=== PATIENT | male | born 1960 | race Caucasian/White ===

== ENCOUNTER 2016-07-25 18:08 | Emergency (ER) | payer SELFPAY ==
[~2016-07-25] VITALS: Ht 182.9 cm; Wt 95.3 kg
--- NOTE | 2016-07-25 20:15 | ED GENERAL ADULT ---
History of Present Illness General Chief Complaint: Low Back Pain/Injury Stated Complaint: S/P FALL YESTERDAY LOW BACK PAIN Source: patient Exam Limitations: no limitations Allergies Coded Allergies: No Known Allergies (07/25/16) Triage Note: 55 Y/O MALE C/O R SIDED LOW BACK PAIN S/P FALL ON ICE LAST NIGHT. TOOK ADVIL WITH SOME RELIEF. QUICK STEADY GAIT NOTED. DENIES URINARY SYMPTOMS Triage Nurses Notes Reviewed? yes Onset: Abrupt Duration: constant Timing: STEADY 7/10 Pain on the right flank after a fall yesterday evening Injury Environment: street Severity: severe Severity Numbers: 7 Modifying Factors: Improves With: immobilization, medication, rest (hot compress improves the pain) , other. Worsens With: movement. Associated Symptoms: back pain HPI: Patient is a 55 year old gentleman that came to the ED due a recent onset pain on the right flank since he had a fall while walking and slipping over ice. patient reports a dull constant pain (7/10) on the right flank radiating to the anterior lower chest wall. He applied heat compresses that helped to some degrees and also took two percocets 6 hours apart to help with the pain. Patient could not sleep well last night due to the pain. He denies any lightheadedness before the fall, did not lose consciousness and denies head trauma. He has a hx of low back pain due to herniated disk but currently denies any back pain. Patient has been able to walk without difficulty and does not report any gait disturbance. does not report any bleeding or bruising. When asked about other concerns, the patient reproted an ulcer on the penis that was there since about 2 weeks ago, he had a previous history of an ulcer on the penis when using a razor and was seen by a supervisor order takers and was treated with TMP-SMX. He has been sexually active recently. (JENNIFER CURTIS,[facility]) Vital Signs & Intake/Output Vital Signs & Intake/Output Vital Signs Date Time Temp Pulse Resp B/P Pulse O2 O2 Flow FiO2 Ox Delivery Rate 07/25 2309 98.4 60 18 138/90 97 Room Air ED Intake and Output 07/26 0000 07/25 1200 Intake Total 0 Output Total Balance 0 Intake, Oral 0 Patient 95.254 kg Weight Reconcile Medications Cyclobenzaprine HCl 10 MG TABLET 1 TAB PO TID PRN muscle spasm Diclofenac Potassium 50 MG TABLET 1 TAB PO TIDPRN PRN back pain Oxycodone HCl/Acetaminophen (Percocet 2.5-325 MG Tablet) 2.5 MG-325 MG TABLET 10 TAB PO Q6 PRN PAIN SCALE 7-10 (SEVERE) (MENDEZ CURTIS,RADHA Pederson) Past History Travel History Traveled to [place] past 21 day No Medical History Any Pertinent Medical History? 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 No (GARCIA RODRIGUEZ MD) Review of Systems Review of Systems Constitutional: Denies: chills, diaphoresis, fever, malaise, weakness. EENTM: Denies: visual changes, hearing changes. Respiratory: Denies: cough, hemoptysis, orthopnea, short of breath, sputum production, stridor, wheezing. Cardiovascular: Denies: chest pain, edema, orthopena, palpitations, peripheral edema, syncope. GI: Denies: abdominal pain, changes in stool. Genitourinary: Denies: discharge, dysuria, frequency, hematuria, hesitation, nocturia, pain, urgency. Musculoskeletal: Reports: back pain, muscle pain. Denies: joint pain, joint swelling, neck pain. Skin: Reports: change in skin color, erythema. Neurological/Psychological: Reports: no symptoms. Hematologic/Endocrine: Denies: bruising, bleeding, polyuria, polydipsia. (GARCIA RODRIGUEZ MD) Physical Exam Physical Exam General Appearance: well developed/nourished, no apparent distress, alert, awake , comfortable Head: atraumatic, normal appearance Eyes: Bilateral: normal appearance, PERRL, EOMI. Ears, Nose, Throat: normal pharynx, normal ENT inspection, hearing grossly normal Neck: normal inspection, supple, full range of motion Respiratory: normal breath sounds, no respiratory distress, quiet respiration, lungs clear Cardiovascular: regular rate/rhythm Gastrointestinal: normal bowel sounds, soft, non-tender Back: normal range of motion, no vertebral tenderness, mild tenderness on the right lower chest and costovertebral angle with erythema of the skin Extremities: normal capillary refill, normal range of motion, no edema, calf tenderness, varicose veins on the distal right lower extremity., 1x1 cm penile ulcer on the ventral aspect, with no discharge, non tender. Neurologic/Psych: no motor/sensory deficits, awake, alert, oriented x 3, normal gait, normal mood/affect Skin: rash (JENNIFER CURTIS,GARCIA) Core Measures ACS in differential dx? No CVA/TIA Diagnosis: No Severe Sepsis Present: No Septic Shock Present: No (MENDEZ CURTIS,RADHA Pederson) Progress Differential Diagnoses I considered the following diagnoses in my evaluation of the patient: [possible fracture in the vertebrae or the ribs, soft tissue injury, syphilis chancre, genital chlamydia and gonoccocal infection] Pre-Hospital EKG: none Initial ED EKG: none (JENNIFER CURTIS,GARCIA) Differential Diagnoses I considered the following diagnoses in my evaluation of the patient: Plan of Care: Orders Procedure Date/time Status TRUNK AREA CULTURE 07/25 2134 Active CHLAMYDIA-GC DNA PROBE 07/25 2134 Active VIRAL CULTURE 07/25 2134 Active RAPID PLASMA REAGIN 07/25 2126 Complete Laboratory Tests 07/25/16 2214: Virus Culture Pending 07/25/169: RPR Titer/FTA NONREACTIVE Microbiology 07/25 2154 URINE ROUT: GC DNA Probe - RECD 07/25 2154 URINE ROUT: Chlamydia DNA Probe (BERNICE) - RECD 07/25 2126 GENITAL: GC DNA Probe - CAN Cancelled: Cancelled via OE: Per Decision 07/25 2126 GENITAL: Chlamydia DNA Probe (BERNICE) - CAN Cancelled: Cancelled via OE: Per MD Decision 07/25 2126 GENITAL: Genital Culture - CAN Cancelled: Cancelled via OE: Error 07/25 2113 TRUNK: Culture & Sensitivity - RES 07/25 2113 TRUNK: Gram Stain - RES Comments: My evaluation reveals tenderness of the right flank with no tenderness over the right upper quadrant or inferior ribs. Patient moves easily about the stretcher there is no ecchymoses or abrasions or erythema in the area of pain. The pain worsens with certain positions and certain movements. I doubt liver contusion or injury. During my discussion with the patient however is brought to my attention ulceration of the penis that has been present for a week and a half. He contacted his supervisor order takers and was prescribed Bactrim over the phone. He has taken the Bactrim for a week without improvement. He admits to being sexually active. 07/25/2016 10:21:25 PM wound cultures and GC and Chlamydia probe have been obtained. Patient will be treated for an STD and for a syphilitic chancre in addition to treatment for his back injury. (MENDEZ CURTIS,RADHA Pederson) Departure Departure Disposition: HOME OR SELF CARE Condition: Stable Referrals: [facility] PATIENT HAS NO PRIMARY CARE DR (PCP/Family) Additional Instructions: PLEASE: 1. COME BACK TO THE ED IF SYMPTOMS GET WORSE 2. REFRAIN FROM HEAVY PHYSICAL ACTIVITIES FOR 1-2 WEEKS 3. USE COLD COMPRESSION ON THE INJURED SITE UNTIL 48 HOURS AFTER THE FALL AND SWITCH TO WARM COMPRESS AFTERWARDS 4. CALL BACK FOR THE BACTERIAL CULTURE RESULTS IN 48 HOURS OF DISCHARGE AND VIRAL CULTURE RSULTS IN 2 WEEKS 5. FOLLOW UP WITH YOUR PCP WITHIN A WEEK OF DISCHARGE Departure Forms: Customer Survey General Discharge Information Prescriptions: Current Visit Scripts Oxycodone HCl/Acetaminophen (Percocet 2.5-325 MG Tablet) 10 TAB PO Q6 PRN PAIN SCALE 7-10 (SEVERE) #10 Cyclobenzaprine HCl 1 TAB PO TID PRN muscle spasm #30 TAB Diclofenac Potassium 1 TAB PO TIDPRN PRN back pain #30 TAB (JENNIFER CURTIS,GARCIA) Departure Clinical Impression Primary Impression: Back strain Qualifiers: Encounter type: initial encounter Qualified Code: S39.012A - Strain of muscle, fascia and tendon of lower back, initial encounter Secondary Impressions: Fall Qualifiers: Encounter type: initial encounter Qualified Code: W19.XXXA - Unspecified fall, initial encounter Male genital ulcer Resident Co-Sign Statement Statement: ED Attending supervision documentation- [x] I saw and evaluated the patient. I have also reviewed all the pertinent lab results and diagnostic results. I agree with the findings and the plan of care as documented in the Resident's documentation. [] I have reviewed the ED Record and agree with the Resident's documentation. [] Additions or exceptions (if any) to the Resident's note and plan are summarized below: [] (MENDEZ CURTIS,RADHA Pederson) Critical Care Note Critical Care Note Critical Care Time: non-applicable (GARCIA RODRIGUEZ MD) ED Attending Observation Initial Observation Note: I have seen and personally examined FAWAD TOVAR on 07/25/16 at 2236. I agree with the current emergency department documentation. The disposition (admission or discharge) is uncertain at this time, he needs a period of observation for the following reason(s): The ED Nurse caring for this patient has been personally informed as to what the patient is being observed for. Observation Re-Evaluation: I have reevaluated FAWAD TOVAR on 07/25/16 at 2243. The physical findings that support the continued need to observe this patient include . Observation Discharge: I have reevaluated FAWAD TOVAR on 07/25/16 at 2243. The patient is: (): Stable for discharge (): To be admitted to Nursing Floor (): To be placed in Observation on Nursing Floor (): For transfer to other facility The patient was being observed for As a result of that observation, I have determined . (GARCIA RODRIGUEZ MD)
[2016-07-25] MEDS ORDERED: PERCOCET 2.5-31 EACH PO (22:52)
[2016-07-25] MEDS ORDERED: CYCLOBENZAPRINE10 M1 PO (22:52)
[2016-07-25] MEDS ORDERED: DICLOFENAC POTA50 M1 PO ×2 (22:52→22:57)
[2016-07-25 23:09] VITALS: BP 138/90
== END 2016-07-25 23:11 ==
LOC: ERH 18:08
DX: S39.012A Strain of muscle, fascia and tendon of lower back, initial encounter (principal); N48.5 Ulcer of penis; X58.XXXA Exposure to other specified factors, initial encounter
CPT/HCPCS: 87070; 87147; 87491; 87591; 96372; J0456; J0561; J0696